=== PATIENT | female | born 1965 | race Caucasian/White ===

== ENCOUNTER 2018-05-15 06:06 | Day surgery (SDC) | payer OTHER ==
[2018-05-15] MEDS ORDERED: PROPOFOL 60 ML (09:03)
== END 2018-05-15 15:30 | disposition home or self-care (01) ==
LOC: GIL 06:06
DX: K21.0 Gastro-esophageal reflux disease with esophagitis (principal); K62.1 Rectal polyp; K31.7 Polyp of stomach and duodenum; K57.90 Diverticulosis of intestine, part unspecified, without perforation or abscess without bleeding
CPT/HCPCS: 43239; 88305; 88312; 88313